=== PATIENT | female | born 2000 | race Caucasian/White ===

== ENCOUNTER → 2020-12-23 | Outpatient (REF) | payer OTHER | LOC: M LAB REF 15:50 | PROVIDERS: ATTEND Physician Assistant | DX: R11.0 Nausea (principal) ==

== ENCOUNTER → 2021-05-31 | Outpatient (REF) | LOC: M EMP 13:45 | PROVIDERS: ATTEND Family Medicine | DX: Z11.52 Encounter for screening for COVID-19 (principal) ==

== ENCOUNTER → 2021-07-01 | Outpatient (REF) | LOC: M LABSMTC 10:07 | PROVIDERS: ATTEND Family Medicine | DX: Z11.52 Encounter for screening for COVID-19 (principal) ==

== ENCOUNTER → 2022-06-13 | Outpatient (REF) | LOC: M LABSMTC 09:41 | PROVIDERS: ATTEND Family Medicine | DX: Z00.00 Encounter for general adult medical examination without abnormal findings (principal) ==

== ENCOUNTER → 2022-06-30 | Outpatient (REF) | LOC: M EMP 09:11 | PROVIDERS: ATTEND Family Medicine | DX: Z11.52 Encounter for screening for COVID-19 (principal) ==

== ENCOUNTER → 2023-01-31 | Outpatient (CLI) | payer OTHER ==
[2023-01-31 17:14] LABS: HEMATOCRIT 38.7 % (36.0-47.0); HEMOGLOBIN 13.2 g/dl (12.0-15.5); MEAN CORPUSCULAR HEMOGLOBIN 31.8 pg (27.0-33.0); MEAN CORPUSCULAR HGB CONC 34.1 g/dl (32.0-36.5); MEAN CORPUSCULAR VOLUME 93.3 fl (80.0-96.0); PLATELET COUNT, AUTOMATED 239 10^3/uL (150-450); RED BLOOD COUNT 4.15 10^6/uL (4.00-5.40); WHITE BLOOD COUNT 11.1 10^3/uL (4.0-10.0)
[2023-01-31 18:23] LABS: HEPATITIS C VIRUS ABY INDEX 0.1 INDEX (<0.8)
[2023-01-31 18:45] LABS: GC DNA AMPLIFICATION NEGATIVE (NEGATIVE)
== END ==
LOC: M PLALAB 15:34
PROVIDERS: ATTEND Obstetrics & Gynecology
DX: Z34.81 Encounter for supervision of other normal pregnancy, first trimester (principal)

== ENCOUNTER → 2023-02-07 | Outpatient (REF) | LOC: M EMP 07:56 | PROVIDERS: ATTEND Family Medicine | DX: Z20.822 Contact with and (suspected) exposure to COVID-19 (principal) ==

== ENCOUNTER → 2023-03-27 | Outpatient (CLI) | payer OTHER | LOC: M WHC 14:15 | PROVIDERS: ATTEND Obstetrics & Gynecology | DX: Z34.92 Encounter for supervision of normal pregnancy, unspecified, second trimester (principal) ==

== ENCOUNTER → 2023-04-17 | Outpatient (CLI) | payer OTHER | LOC: M WHC 09:42 | PROVIDERS: ATTEND Advanced Practice Midwife | DX: Z34.02 Encounter for supervision of normal first pregnancy, second trimester (principal) ==

== ENCOUNTER → 2023-05-07 | Outpatient (CLI) | payer OTHER ==
[2023-05-07 08:10] LABS: HEMOGLOBIN 12.7 g/dl (12.0-15.5); MEAN CORPUSCULAR HEMOGLOBIN 31.9 pg (27.0-33.0); MEAN CORPUSCULAR HGB CONC 34.3 g/dl (32.0-36.5); PLATELET COUNT, AUTOMATED 227 10^3/uL (150-450); RED BLOOD COUNT 3.98 10^6/uL (4.00-5.40); WHITE BLOOD COUNT 10.1 10^3/uL (4.0-10.0)
[2023-05-07 09:42] LABS: GC DNA AMPLIFICATION NEGATIVE (NEGATIVE)
== END ==
LOC: M LAB 06:29
PROVIDERS: ATTEND Advanced Practice Midwife
DX: Z34.02 Encounter for supervision of normal first pregnancy, second trimester (principal)

== ENCOUNTER → 2023-07-23 | Outpatient (REF) | payer OTHER | LOC: M PLALAB 08:01 | PROVIDERS: ATTEND Obstetrics & Gynecology | DX: Z34.80 Encounter for supervision of other normal pregnancy, unspecified trimester (principal) | CPT/HCPCS: 87081; 87186; G0463 ==

== ENCOUNTER 2023-07-31 20:22 | Inpatient (IN) | payer OTHER ==
[~2023-07-31] VITALS: Ht 175.3 cm; Wt 123.6 kg
[2023-07-31 20:41] VITALS: BP 140/69
[2023-07-31] MEDS ORDERED: PRENTAB9 PO (20:49)
[2023-07-31] MEDS ORDERED: PENICILLIN G POTASSIUM 5 MU IV 5 MU in D5W MINI-BAG PLUS 100 ML IV STA (21:24)
[2023-07-31] MEDS ORDERED: LACTATED RINGER'S 1000 ML IV STA (21:24)
[2023-07-31] MEDS ORDERED: LR 1,000 ML IV SCH ×2 (21:25→22:05)
[2023-07-31 21:39] LABS: HEMATOCRIT 36.9 % (36.0-47.0); HEMOGLOBIN 12.8 g/dl (12.0-15.5); MEAN CORPUSCULAR HEMOGLOBIN 30.5 pg (27.0-33.0); MEAN CORPUSCULAR HGB CONC 34.7 g/dl (32.0-36.5); MEAN CORPUSCULAR VOLUME 88.1 fl (80.0-96.0); PLATELET COUNT, AUTOMATED 226 10^3/uL (150-450); RED BLOOD COUNT 4.19 10^6/uL (4.00-5.40)
[2023-07-31 21:52] VITALS: BP 120/76
[2023-07-31] MEDS ORDERED: OXYTOCIN DRIP 30 UNITS in IV 1 EA IV SCH (22:05)
[2023-07-31 23:34] VITALS: BP 109/56
[2023-08-01] VITALS (42 sets, daily range): BP systolic 89–138; BP diastolic 46–90; O2SAT 97–98
[2023-08-01] MEDS: PEN G POT 3,000,000 UNIT/50 ML 3,000,000 UNIT in IV 1 EA IV SCH ×2 (01:58→06:13)
[2023-08-01] MEDS ORDERED: EPIDURAL/PCA KEYS XX PRN (02:40)
[2023-08-01] MEDS ORDERED: FENTANYL/ROPIVACAINE/NACL BAG 100 ML EPIDURAL SCH (02:40)
[2023-08-01] MEDS ORDERED: LR 500 ML IV PRN (02:40)
[2023-08-01] MEDS ORDERED: diphenhydrAMINE 50MG/ML VIAL IV PRN (02:40)
[2023-08-01] MEDS ORDERED: NALOXONE INJ 0.4MG/1ML VIAL IV PRN (02:40)
[2023-08-01] MEDS ORDERED: ONDANSETRON 4MG 2ML VIAL IV PRN (02:40)
[2023-08-01] MEDS: ePHEDrine SULFATE 25 MG/5 ML(5MG/ML) SYRINGE IVP PRN ×3 (04:44→04:53)
[2023-08-01 06:51] LABS: CORD GAS ABE A -2.6; CORD GAS ABE V -5.1; CORD GAS HCO3 A 27.4 MMOL/L; CORD GAS HCO3 V 20.9 MMOL/L; CORD GAS O2 SAT A 45.8 %; CORD GAS O2 SAT V 80.3 %; CORD GAS PCO2 A 68.5 mmHg; CORD GAS PCO2 V 42.4 mmHg; CORD GAS PH A 7.22 UNITS; CORD GAS PH V 7.311 UNITS; CORD GAS PO2 A 21.3 mmHg; CORD GAS PO2 V 35.8 mmHg; CORD GAS SBC A 20.9 MMOL/L; CORD GAS SBC V 19.9 MMOL/L; CORD GAS TCO2 A 29.5 MMOL/L; CORD GAS TCO2 V 22.2 MMOL/L
[2023-08-01] MEDS: PRENATAL VITAMINS CHEWABLE TABLET PO SCH (09:00)
[2023-08-01] MEDS ORDERED: METHYLERGONOVINE MALEATE 0.2 MG TAB PO PRN (09:20)
[2023-08-01] MEDS ORDERED: DIBUCAINE 1% OINTMENT 30GM TOP PRN (09:20)
[2023-08-01] MEDS ORDERED: DOCUSATE SODIUM 100MG CAPSULE PO PRN (09:20)
[2023-08-01] MEDS ORDERED: RHOGAM 300MCG (1500IU) INJ IM SCH (09:20)
[2023-08-01] MEDS ORDERED: MOM 30ML SUSPENSION UDC PO PRN (09:20)
[2023-08-01] MEDS ORDERED: ACETAMINOPHEN TAB 650MG DOSE (2X325MG) PO PRN (09:20)
[2023-08-01] MEDS ORDERED: ACETAMINOPHEN 500 MG TAB PO PRN (09:20)
[2023-08-01] MEDS ORDERED: IBUPROFEN 600MG TAB PO PRN (09:20)
[2023-08-01] MEDS: IBUPROFEN 800 MG TAB PO PRN ×2 (11:08→23:27)
[2023-08-02 06:00] VITALS: BP 122/63; O2SAT 96
[2023-08-02] MEDS: PRENATAL VITAMINS CHEWABLE TABLET PO SCH (08:45)
[2023-08-03] MEDS ORDERED: MEASLES,MUMPS,RUBELLA VACCINE INJ (MMR-II) SC.IMMUN ONE (09:00)
== END 2023-08-02 14:35 | disposition home or self-care (01) | DRG 807 ==
LOC: M LDO 20:22 → M LDI 21:02 → M OBS 08-01 08:10
PROVIDERS: ADMIT Obstetrics & Gynecology; ATTEND Obstetrics & Gynecology
PROC: 10E0XZZ Delivery of Products of Conception, External Approach (ICD-10-PCS; principal; 2023-08-01)
PROC: 0HQ9XZZ Repair Perineum Skin, External Approach (ICD-10-PCS; 2023-08-01)
DX: O69.1XX0 Labor and delivery complicated by cord around neck, with compression, not applicable or unspecified (principal); Z37.0 Single live birth; Z3A.37 37 weeks gestation of pregnancy; O70.0 First degree perineal laceration during delivery

== ENCOUNTER → 2023-11-27 | Outpatient (REF) | payer OTHER ==
[~2023-11-27] MED LIST: PRENTAB9 PO
== END ==
LOC: M LAB REF 14:50
PROVIDERS: ATTEND Obstetrics & Gynecology
DX: Z01.419 Encounter for gynecological examination (general) (routine) without abnormal findings (principal)

== ENCOUNTER → 2025-05-26 | Outpatient (REF) | payer OTHER | LOC: M LAB REF 11:45 | PROVIDERS: ATTEND Physician Assistant | DX: R10.2 Pelvic and perineal pain (principal) ==

== ENCOUNTER → 2025-07-03 | Outpatient (CLI) | payer OTHER ==
[2025-07-03 13:01] LABS: BASO # 0.0 10^3/uL (0.0-0.2); BASO % 0.7 % (0.0-1.0); EOS # 0.1 10^3/uL (0.0-0.5); EOS % 1.1 % (0.0-3.0); LYMPH # 2.1 10^3/uL (1.5-5.0); LYMPH % 37.6 % (24.0-44.0); MONO # 0.3 10^3/uL (0.0-0.8); MONO % 5.9 % (2.0-8.0); NEUTROPHILS # 3.1 10^3/uL (1.5-8.5); NEUTROPHILS % 54.5 % (36.0-66.0); PLATELET COUNT, AUTOMATED 211 10^3/uL (150-450)
[2025-07-03 13:30] LABS: ALT/SGPT 10 U/L (7.0-40); AST/SGOT 12 U/L (<34); CALCIUM LEVEL 9.0 MG/DL (8.5-10.1); CARBON DIOXIDE LEVEL 27 MMOL/L (20-31); CHLORIDE LEVEL 105 MMOL/L (98-107); CHOLESTEROL LEVEL 155 MG/DL (<200); CHOLESTEROL RISK RATIO 3.19 (<5); CREATININE FOR GFR 0.72 MG/DL (0.55-1.30); GLOMERULAR FILTRATION RATE > 90.0 (>60); IRON (FE) 96 UG/DL (50-170); LDL CHOLESTEROL 98.1 MG/DL (<100); NON-HDL-C 106.5 MG/DL; PERCENT SATURATION 32.2 % (13.2-45.0); POTASSIUM SERUM 4.4 MMOL/L (3.5-5.1); SODIUM LEVEL 141 MMOL/L (136-145); TRIGLYCERIDES LEVEL 42 MG/DL (<150)
[2025-07-03 13:31] LABS: TOTAL 25(OH) VITAMIN D 31.1 NG/ML (20.0-100.0)
[2025-07-03 13:32] LABS: FREE T4 1.12 NG/DL (0.89-1.76); VITAMIN B12 LEVEL 480 PG/ML (211-911)
== END ==
LOC: M WUC 10:23
PROVIDERS: ATTEND Nurse Practitioner Adult Health
DX: Z13.29 Encounter for screening for other suspected endocrine disorder (principal); Z13.220 Encounter for screening for lipoid disorders; Z13.0 Encounter for screening for diseases of the blood and blood-forming organs and certain disorders involving the immune mechanism